=== PATIENT | female | born 1955 | race Two or more races ===

== ENCOUNTER 2022-01-10 11:20 | Emergency (ER) | payer MEDICARE, OTHER ==
[~2022-01-10] VITALS: Ht 134.6 cm; Wt 79.8 kg
[2022-01-10] MEDS ORDERED: NAPR500T31 PO (12:06)
[2022-01-10] MEDS ORDERED: CEPH500C PO (12:06)
[2022-01-10 12:20] VITALS: BP 144/75
== END 2022-01-10 12:56 | disposition home or self-care (01) ==
LOC: ER 11:20
DX: L60.0 Ingrowing nail (principal); B35.1 Tinea unguium; E11.9 Type 2 diabetes mellitus without complications; Z90.710 Acquired absence of both cervix and uterus